=== PATIENT | male | born 1985 | race Two or more races ===

== ENCOUNTER 2019-12-23 20:28 | Inpatient (IN) | payer OTHER ==
[~2019-12-23] VITALS: Ht 177.8 cm; Wt 90.0 kg
[2019-12-23] MEDS ORDERED: ONDANSETRON ODT 4 MG TAB PO ONE (21:00)
[2019-12-23] MEDS ORDERED: ACETAMINOPHEN 325 MG TAB PO ONE (21:00)
[2019-12-23 22:15] LABS: Basophils # (auto) 0 10 ^3/uL (0-0.2); Basophils % (auto) 0.5 % (0.0-2.0); Eosinophils # (auto) 0 10 ^3/uL (0-0.8); Hematocrit 50.1 % (41.0-53.0); Hemoglobin 17.1 g/dL (13.5-17.5); Lymphocytes # (auto) 1.3 10 ^3/uL (0.4-5.4); Lymphocytes % (auto) 13.3 % (10.0-50.0); Mean Corpuscular Hemoglobin 30.1 pg (28.0-32.0); Mean Corpuscular Hgb Conc. 34.1 g/dL (32.0-36.0); Mean Corpuscular Volume 88.4 fL (80.0-100.0); Monocytes # (auto) 1.2 10 ^3/uL (0-1.3); Monocytes % (auto) 12.3 % (0.0-12.0); Neutrophils # (auto) 7.2 10 ^3/uL (1.6-8.6); Neutrophils % (auto) 73.9 % (37.0-80.0); Nucleated Red Blood Cells % 0.4 %; Platelet Count (auto) 280 10^3/uL (140-450); Red Blood Cells 5.67 10^6/uL (4.5-5.90); Red Cell Distribution Width 13.2 % (11.8-14.3); White Blood Cell 9.8 10^3/uL (4.4-10.8)
[2019-12-23 22:33] LABS: Alanine Aminotransferase 47 U/L (16-61); Albumin 3.7 g/dL (3.4-5.0); Anion Gap 9 (5-15); Aspartate Aminotransferase 34 U/L (15-37); BUN/Creatinine Ratio 15.3; Blood Urea Nitrogen 19 mg/dL (7-18); Calcium 8.5 mg/dL (8.5-10.1); Carbon Dioxide 24 mmol/L (21-32); Chloride 102 mmol/L (98-107); GFR African American 85 mL/min; GFR Non-African American 71 mL/min; Glucose 99 mg/dL (74-106); Potassium 4.3 mmol/L (3.5-5.1); Sodium 135 mmol/L (136-145)
[2019-12-23 22:36] LABS: Alkaline Phosphatase 142 U/L (45-117); Bilirubin, Total 1.1 mg/dL (0.2-1.0); Total Protein 8.8 g/dL (6.4-8.2)
[2019-12-24] MEDS: ZINC SULFATE 220mg CAP or TAB PO SCH ×2 (00:07→08:04)
[2019-12-24] MEDS: ENOXAPARIN SOD 40 MG/0.4 ML SYRINGE SC SCH ×2 (00:08→08:04)
[2019-12-24] MEDS: methylPREDNISolone SOD SUCC 125 MG/2 ML VL IV SCH ×3 (00:47→21:47)
[2019-12-24] MEDS: AZITHROMYCIN 250 MG TAB PO SCH ×2 (00:50→08:04)
[2019-12-24 03:40] VITALS: BP 109/69
[2019-12-24] MEDS ORDERED: ALBUTEROL SULF HFA 90MCG INH 200DOSE IN SCH (06:00)
[2019-12-24] MEDS ORDERED: cefTRIAXone 1GM/50ML D5W 50 ML IV ONE ×2 (07:47→08:00)
[2019-12-24] MEDS ORDERED: LISINOPRIL 20 MG TAB PO ONE (09:00)
[2019-12-24 09:26] VITALS: BP 112/77
[2019-12-24] MEDS: ALBUTEROL SULF HFA 90MCG INH 200DOSE IN SCH ×3 (09:30→22:00)
[2019-12-24 12:23] VITALS: BP 108/70
[2019-12-24 17:00] VITALS: BP 115/85
[2019-12-24 22:00] VITALS: BP 89/60
[2019-12-24 23:45] VITALS: BP 100/72
[2019-12-25 05:00] VITALS: BP 100/70
[2019-12-25] MEDS: ALBUTEROL SULF HFA 90MCG INH 200DOSE IN SCH ×3 (06:36→18:55)
[2019-12-25] MEDS: HYDROcodone-ACET 10/325MG TAB PO PRN (07:24)
[2019-12-25 08:00] VITALS: BP 132/76
[2019-12-25] MEDS: AZITHROMYCIN 250 MG TAB PO SCH (10:00)
[2019-12-25] MEDS: ZINC SULFATE 220mg CAP or TAB PO SCH (10:00)
[2019-12-25] MEDS: ENOXAPARIN SOD 40 MG/0.4 ML SYRINGE SC SCH (10:00)
[2019-12-25] MEDS: methylPREDNISolone SOD SUCC 125 MG/2 ML VL IV SCH (10:39)
[2019-12-25 12:00] VITALS: BP 101/69
[2019-12-25 17:00] VITALS: BP 104/73
[2019-12-25] MEDS: ASCORBIC ACID 500 MG TAB PO SCH (21:04)
[2019-12-25 22:00] VITALS: BP 123/74
[2019-12-26 05:00] VITALS: BP 110/69
[2019-12-26] MEDS: ALBUTEROL SULF HFA 90MCG INH 200DOSE IN SCH ×3 (06:44→22:11)
[2019-12-26 07:32] LABS: CRP High Sensitivity 1.16 mg/dL (< 0.3)
[2019-12-26 08:46] VITALS: BP 107/67
[2019-12-26] MEDS: HYDROcodone-ACET 10/325MG TAB PO PRN ×2 (09:27→21:42)
[2019-12-26] MEDS: DexAMETHasone 4 MG TAB PO SCH (09:36)
[2019-12-26] MEDS: THIAMINE HCL 100 MG TAB PO SCH (09:36)
[2019-12-26] MEDS: ZINC SULFATE 220mg CAP or TAB PO SCH (09:36)
[2019-12-26] MEDS: ENOXAPARIN SOD 40 MG/0.4 ML SYRINGE SC SCH (09:37)
[2019-12-26] MEDS: CHOLECALCIFEROL (VITD3) 1,000UNIT=25mCg TAB PO SCH (09:37)
[2019-12-26] MEDS: ASCORBIC ACID 500 MG TAB PO SCH ×2 (09:37→21:42)
[2019-12-26] MEDS: AZITHROMYCIN 250 MG TAB PO SCH (09:37)
[2019-12-26] MEDS: FAMOTIDINE 20 MG TAB PO SCH (09:37)
[2019-12-26 12:58] VITALS: BP 124/76
[2019-12-26 17:00] VITALS: BP 119/75
[2019-12-26 19:55] VITALS: BP 119/75
[2019-12-26] MEDS ORDERED: FUROSEMIDE 40 MG/4 ML VIAL IV ONE (21:00)
[2019-12-26] MEDS: guaiFENesin 200 MG/10 ML UD PO PRN (22:17)
[2019-12-26 23:54] VITALS: BP 117/74
[2019-12-27] MEDS: HYDROcodone-ACET 10/325MG TAB PO PRN ×3 (01:50→21:10)
[2019-12-27 05:23] VITALS: BP 104/68
[2019-12-27 05:25] VITALS: BP 110/75
[2019-12-27] MEDS: guaiFENesin 200 MG/10 ML UD PO PRN ×3 (06:22→16:43)
[2019-12-27 08:00] VITALS: BP 127/79
[2019-12-27] MEDS: THIAMINE HCL 100 MG TAB PO SCH (09:50)
[2019-12-27] MEDS: LACTULOSE 20Gm/30ML SOLN PO SCH ×2 (09:50→21:10)
[2019-12-27] MEDS: DexAMETHasone 4 MG TAB PO SCH (09:50)
[2019-12-27] MEDS: ZINC SULFATE 220mg CAP or TAB PO SCH (09:50)
[2019-12-27] MEDS: FAMOTIDINE 20 MG TAB PO SCH (09:51)
[2019-12-27] MEDS: ASCORBIC ACID 500 MG TAB PO SCH ×2 (09:51→21:10)
[2019-12-27] MEDS: CHOLECALCIFEROL (VITD3) 1,000UNIT=25mCg TAB PO SCH (09:51)
[2019-12-27] MEDS: ENOXAPARIN SOD 40 MG/0.4 ML SYRINGE SC SCH (09:51)
[2019-12-27] MEDS: AZITHROMYCIN 250 MG TAB PO SCH (09:51)
[2019-12-27] MEDS: PANTOPRAZOLE 40 MG TAB PO SCH (09:51)
[2019-12-27] MEDS: ALBUTEROL SULF HFA 90MCG INH 200DOSE IN SCH ×3 (10:13→22:32)
[2019-12-27 12:00] VITALS: BP 116/70
[2019-12-27 16:49] VITALS: BP 111/78
[2019-12-27 22:54] VITALS: BP 105/74
[2019-12-28] MEDS: guaiFENesin 200 MG/10 ML UD PO PRN ×2 (04:25→14:34)
[2019-12-28] MEDS: HYDROcodone-ACET 10/325MG TAB PO PRN ×3 (04:26→21:48)
[2019-12-28 05:29] VITALS: BP 131/81
[2019-12-28 06:38] LABS: Basophils # (auto) 0 10 ^3/uL (0-0.2); Basophils % (auto) 0.1 % (0.0-2.0); Eosinophils # (auto) 0 10 ^3/uL (0-0.8); Hematocrit 45.5 % (41.0-53.0); Lymphocytes # (auto) 1.2 10 ^3/uL (0.4-5.4); Lymphocytes % (auto) 7.6 % (10.0-50.0); Mean Corpuscular Hemoglobin 29.8 pg (28.0-32.0); Mean Corpuscular Volume 90.2 fL (80.0-100.0); Monocytes # (auto) 1.1 10 ^3/uL (0-1.3); Neutrophils # (auto) 13.3 10 ^3/uL (1.6-8.6); Neutrophils % (auto) 85.3 % (37.0-80.0); Platelet Count (auto) 299 10^3/uL (140-450); Red Blood Cells 5.04 10^6/uL (4.5-5.90); Red Cell Distribution Width 12.9 % (11.8-14.3); White Blood Cell 15.6 10^3/uL (4.4-10.8)
[2019-12-28] MEDS: ALBUTEROL SULF HFA 90MCG INH 200DOSE IN SCH ×3 (07:00→22:28)
[2019-12-28 07:02] LABS: Potassium 4.1 mmol/L (3.5-5.1)
[2019-12-28 07:09] LABS: BUN/Creatinine Ratio 24.2; Bilirubin, Total 0.6 mg/dL (0.2-1.0); Total Protein 7.2 g/dL (6.4-8.2)
[2019-12-28 08:00] VITALS: BP 117/69
[2019-12-28] MEDS: LACTULOSE 20Gm/30ML SOLN PO SCH ×2 (08:58→21:50)
[2019-12-28] MEDS: FAMOTIDINE 20 MG TAB PO SCH (08:58)
[2019-12-28] MEDS: CHOLECALCIFEROL (VITD3) 1,000UNIT=25mCg TAB PO SCH (08:59)
[2019-12-28] MEDS: AZITHROMYCIN 250 MG TAB PO SCH (08:59)
[2019-12-28] MEDS: DexAMETHasone 4 MG TAB PO SCH (08:59)
[2019-12-28] MEDS: PANTOPRAZOLE 40 MG TAB PO SCH (08:59)
[2019-12-28] MEDS: ZINC SULFATE 220mg CAP or TAB PO SCH (08:59)
[2019-12-28] MEDS: THIAMINE HCL 100 MG TAB PO SCH (09:00)
[2019-12-28] MEDS: ENOXAPARIN SOD 40 MG/0.4 ML SYRINGE SC SCH (10:00)
[2019-12-28] MEDS: ASCORBIC ACID 500 MG TAB PO SCH ×2 (10:00→21:47)
[2019-12-28 12:00] VITALS: BP 117/71
[2019-12-28 17:00] VITALS: BP 121/77
[2019-12-29 05:00] VITALS: BP 113/85
[2019-12-29] MEDS: ALBUTEROL SULF HFA 90MCG INH 200DOSE IN SCH ×3 (06:38→22:03)
[2019-12-29 09:00] VITALS: BP 109/79
[2019-12-29] MEDS: CHOLECALCIFEROL (VITD3) 1,000UNIT=25mCg TAB PO SCH (10:00)
[2019-12-29] MEDS: HYDROcodone-ACET 10/325MG TAB PO PRN ×2 (10:20→21:31)
[2019-12-29] MEDS: LACTULOSE 20Gm/30ML SOLN PO SCH ×2 (10:20→21:30)
[2019-12-29] MEDS: ZINC SULFATE 220mg CAP or TAB PO SCH (10:20)
[2019-12-29] MEDS: PANTOPRAZOLE 40 MG TAB PO SCH (10:21)
[2019-12-29] MEDS: AZITHROMYCIN 250 MG TAB PO SCH (10:21)
[2019-12-29] MEDS: ENOXAPARIN SOD 40 MG/0.4 ML SYRINGE SC SCH (10:21)
[2019-12-29] MEDS: ASCORBIC ACID 500 MG TAB PO SCH ×2 (10:21→21:31)
[2019-12-29] MEDS: FAMOTIDINE 20 MG TAB PO SCH (10:21)
[2019-12-29] MEDS: DexAMETHasone 4 MG TAB PO SCH (10:21)
[2019-12-29] MEDS: THIAMINE HCL 100 MG TAB PO SCH (10:22)
[2019-12-29 13:00] VITALS: BP 119/75
[2019-12-29 17:00] VITALS: BP 117/75
[2019-12-29 19:35] VITALS: BP 117/75
[2019-12-29] MEDS: guaiFENesin 200 MG/10 ML UD PO PRN (21:31)
[2019-12-29 22:00] VITALS: BP 105/70
[2019-12-30 05:00] VITALS: BP 108/79
[2019-12-30] MEDS: ALBUTEROL SULF HFA 90MCG INH 200DOSE IN SCH ×3 (07:13→21:53)
[2019-12-30 09:00] VITALS: BP 122/83
[2019-12-30] MEDS: CHOLECALCIFEROL (VITD3) 1,000UNIT=25mCg TAB PO SCH (10:00)
[2019-12-30] MEDS: ZINC SULFATE 220mg CAP or TAB PO SCH (10:18)
[2019-12-30] MEDS: DexAMETHasone 4 MG TAB PO SCH (10:18)
[2019-12-30] MEDS: AZITHROMYCIN 250 MG TAB PO SCH (10:18)
[2019-12-30] MEDS: LACTULOSE 20Gm/30ML SOLN PO SCH ×2 (10:18→21:37)
[2019-12-30] MEDS: FAMOTIDINE 20 MG TAB PO SCH (10:18)
[2019-12-30] MEDS: guaiFENesin 200 MG/10 ML UD PO PRN (10:18)
[2019-12-30] MEDS: PANTOPRAZOLE 40 MG TAB PO SCH (10:18)
[2019-12-30] MEDS: HYDROcodone-ACET 10/325MG TAB PO PRN ×2 (10:19→21:37)
[2019-12-30] MEDS: THIAMINE HCL 100 MG TAB PO SCH (10:19)
[2019-12-30] MEDS: ASCORBIC ACID 500 MG TAB PO SCH ×2 (10:19→21:37)
[2019-12-30] MEDS: ENOXAPARIN SOD 40 MG/0.4 ML SYRINGE SC SCH (10:19)
[2019-12-30 13:00] VITALS: BP 114/77
[2019-12-30 17:00] VITALS: BP 111/73
[2019-12-30 22:00] VITALS: BP 111/71
[2019-12-31] MEDS: guaiFENesin 200 MG/10 ML UD PO PRN (01:11)
[2019-12-31 05:00] VITALS: BP 115/68
[2019-12-31] MEDS: ALBUTEROL SULF HFA 90MCG INH 200DOSE IN SCH ×3 (06:59→22:45)
[2019-12-31 08:00] VITALS: BP 117/70
[2019-12-31 09:08] VITALS: BP 117/70
[2019-12-31] MEDS: ZINC SULFATE 220mg CAP or TAB PO SCH (09:09)
[2019-12-31] MEDS: THIAMINE HCL 100 MG TAB PO SCH (09:09)
[2019-12-31] MEDS: LACTULOSE 20Gm/30ML SOLN PO SCH ×2 (09:09→22:00)
[2019-12-31] MEDS: DexAMETHasone 4 MG TAB PO SCH (09:09)
[2019-12-31] MEDS: FAMOTIDINE 20 MG TAB PO SCH (09:09)
[2019-12-31] MEDS: PANTOPRAZOLE 40 MG TAB PO SCH (09:09)
[2019-12-31] MEDS: ENOXAPARIN SOD 40 MG/0.4 ML SYRINGE SC SCH (09:10)
[2019-12-31] MEDS: AZITHROMYCIN 250 MG TAB PO SCH (09:10)
[2019-12-31] MEDS: CHOLECALCIFEROL (VITD3) 1,000UNIT=25mCg TAB PO SCH (09:10)
[2019-12-31] MEDS: ASCORBIC ACID 500 MG TAB PO SCH ×2 (09:13→22:00)
[2019-12-31] MEDS: HYDROcodone-ACET 10/325MG TAB PO PRN ×2 (09:14→22:32)
[2019-12-31 12:21] LABS: Hepatitis A Ab IgM Negative; Hepatitis B Core IgM Negative; Hepatitis B Surface Antigen Negative (Negative); Hepatitis C Antibody Negative (Negative)
[2019-12-31 13:00] VITALS: BP 117/82
[2019-12-31 16:24] VITALS: BP 125/78
[2019-12-31 22:00] VITALS: BP 105/70
[2020-01-01] VITALS (7 sets, daily range): BP systolic 105–114; BP diastolic 69–79
[2020-01-01] MEDS: ALBUTEROL SULF HFA 90MCG INH 200DOSE IN SCH ×3 (07:04→22:54)
[2020-01-01] MEDS: LACTULOSE 20Gm/30ML SOLN PO SCH ×2 (09:23→21:47)
[2020-01-01] MEDS: DexAMETHasone 4 MG TAB PO SCH (09:23)
[2020-01-01] MEDS: PANTOPRAZOLE 40 MG TAB PO SCH (09:23)
[2020-01-01] MEDS: ZINC SULFATE 220mg CAP or TAB PO SCH (09:23)
[2020-01-01] MEDS: THIAMINE HCL 100 MG TAB PO SCH (09:23)
[2020-01-01] MEDS: FAMOTIDINE 20 MG TAB PO SCH (09:23)
[2020-01-01] MEDS: ASCORBIC ACID 500 MG TAB PO SCH ×2 (09:23→21:47)
[2020-01-01] MEDS: CHOLECALCIFEROL (VITD3) 1,000UNIT=25mCg TAB PO SCH (09:23)
[2020-01-01] MEDS: AZITHROMYCIN 250 MG TAB PO SCH (09:24)
[2020-01-01] MEDS: ENOXAPARIN SOD 40 MG/0.4 ML SYRINGE SC SCH (09:24)
[2020-01-01] MEDS: HYDROcodone-ACET 10/325MG TAB PO PRN ×2 (17:22→21:51)
[2020-01-02] MEDS: HYDROcodone-ACET 10/325MG TAB PO PRN ×2 (05:07→21:09)
[2020-01-02 06:00] VITALS: BP 105/71
[2020-01-02] MEDS: ALBUTEROL SULF HFA 90MCG INH 200DOSE IN SCH ×3 (06:35→22:00)
[2020-01-02 09:00] VITALS: BP 105/70
[2020-01-02 09:02] LABS: Potassium 4.4 mmol/L (3.5-5.1)
[2020-01-02 09:09] LABS: BUN/Creatinine Ratio 22.9; Bilirubin, Total 0.3 mg/dL (0.2-1.0); Calcium 8.4 mg/dL (8.5-10.1); Total Protein 6.7 g/dL (6.4-8.2)
[2020-01-02] MEDS: LACTULOSE 20Gm/30ML SOLN PO SCH ×2 (10:19→22:21)
[2020-01-02] MEDS: THIAMINE HCL 100 MG TAB PO SCH (10:19)
[2020-01-02] MEDS: ZINC SULFATE 220mg CAP or TAB PO SCH (10:20)
[2020-01-02] MEDS: DexAMETHasone 4 MG TAB PO SCH (10:20)
[2020-01-02] MEDS: FAMOTIDINE 20 MG TAB PO SCH (10:20)
[2020-01-02] MEDS: ENOXAPARIN SOD 40 MG/0.4 ML SYRINGE SC SCH (10:21)
[2020-01-02] MEDS: PANTOPRAZOLE 40 MG TAB PO SCH (10:21)
[2020-01-02] MEDS: CHOLECALCIFEROL (VITD3) 1,000UNIT=25mCg TAB PO SCH (10:21)
[2020-01-02] MEDS: AZITHROMYCIN 250 MG TAB PO SCH (10:21)
[2020-01-02] MEDS: ASCORBIC ACID 500 MG TAB PO SCH ×2 (10:21→22:21)
[2020-01-02 13:00] VITALS: BP 111/73
[2020-01-02 16:27] VITALS: BP 113/80
[2020-01-02 22:00] VITALS: BP 110/69
[2020-01-03 05:00] VITALS: BP 111/76
[2020-01-03] MEDS: HYDROcodone-ACET 10/325MG TAB PO PRN ×3 (05:45→20:39)
[2020-01-03] MEDS: ALBUTEROL SULF HFA 90MCG INH 200DOSE IN SCH ×3 (06:38→21:36)
[2020-01-03 09:00] VITALS: BP 115/81
[2020-01-03] MEDS: LACTULOSE 20Gm/30ML SOLN PO SCH ×2 (10:01→22:01)
[2020-01-03] MEDS: ENOXAPARIN SOD 40 MG/0.4 ML SYRINGE SC SCH (10:01)
[2020-01-03] MEDS: DexAMETHasone 4 MG TAB PO SCH (10:02)
[2020-01-03] MEDS: FAMOTIDINE 20 MG TAB PO SCH (10:03)
[2020-01-03] MEDS: ASCORBIC ACID 500 MG TAB PO SCH ×2 (10:03→22:02)
[2020-01-03] MEDS: AZITHROMYCIN 250 MG TAB PO SCH (10:03)
[2020-01-03] MEDS: CHOLECALCIFEROL (VITD3) 1,000UNIT=25mCg TAB PO SCH (10:03)
[2020-01-03] MEDS: ZINC SULFATE 220mg CAP or TAB PO SCH (10:03)
[2020-01-03] MEDS: PANTOPRAZOLE 40 MG TAB PO SCH (10:03)
[2020-01-03] MEDS: THIAMINE HCL 100 MG TAB PO SCH (10:04)
[2020-01-03 13:00] VITALS: BP 110/71
[2020-01-03 17:00] VITALS: BP 118/75
[2020-01-03 19:09] VITALS: BP 118/75
[2020-01-03 22:00] VITALS: BP 121/81
[2020-01-04 05:00] VITALS: BP 121/80
[2020-01-04] MEDS: HYDROcodone-ACET 10/325MG TAB PO PRN ×4 (05:17→19:59)
[2020-01-04] MEDS: ALBUTEROL SULF HFA 90MCG INH 200DOSE IN SCH ×3 (07:10→22:37)
[2020-01-04 09:00] VITALS: BP 128/85
[2020-01-04] MEDS: CHOLECALCIFEROL (VITD3) 1,000UNIT=25mCg TAB PO SCH (09:55)
[2020-01-04] MEDS: DexAMETHasone 4 MG TAB PO SCH (09:55)
[2020-01-04] MEDS: THIAMINE HCL 100 MG TAB PO SCH (09:55)
[2020-01-04] MEDS: ZINC SULFATE 220mg CAP or TAB PO SCH (09:55)
[2020-01-04] MEDS: PANTOPRAZOLE 40 MG TAB PO SCH (09:55)
[2020-01-04] MEDS: ASCORBIC ACID 500 MG TAB PO SCH ×2 (09:55→21:25)
[2020-01-04] MEDS: FAMOTIDINE 20 MG TAB PO SCH (09:55)
[2020-01-04] MEDS: AZITHROMYCIN 250 MG TAB PO SCH (09:56)
[2020-01-04] MEDS: LACTULOSE 20Gm/30ML SOLN PO SCH ×2 (09:56→21:25)
[2020-01-04 13:00] VITALS: BP 124/79
[2020-01-04 17:00] VITALS: BP 113/82
[2020-01-04 20:00] VITALS: BP 106/63
[2020-01-04] MEDS ORDERED: ZOLPIDEM TARTRATE 5 MG TAB PO PRN (20:45)
[2020-01-04 22:00] VITALS: BP 106/63
[2020-01-05] MEDS: HYDROcodone-ACET 10/325MG TAB PO PRN (03:32)
[2020-01-05 05:01] VITALS: BP 135/80
[2020-01-05] MEDS: ALBUTEROL SULF HFA 90MCG INH 200DOSE IN SCH ×2 (06:47→14:39)
[2020-01-05 09:25] VITALS: BP 113/71
[2020-01-05] MEDS: LACTULOSE 20Gm/30ML SOLN PO SCH (09:59)
[2020-01-05] MEDS: FAMOTIDINE 20 MG TAB PO SCH (09:59)
[2020-01-05] MEDS: CHOLECALCIFEROL (VITD3) 1,000UNIT=25mCg TAB PO SCH (09:59)
[2020-01-05] MEDS: THIAMINE HCL 100 MG TAB PO SCH (09:59)
[2020-01-05] MEDS: PANTOPRAZOLE 40 MG TAB PO SCH (09:59)
[2020-01-05] MEDS: ASCORBIC ACID 500 MG TAB PO SCH (10:00)
[2020-01-05] MEDS: AZITHROMYCIN 250 MG TAB PO SCH (10:00)
[2020-01-05] MEDS: ZINC SULFATE 220mg CAP or TAB PO SCH (10:00)
[2020-01-05 13:03] VITALS: BP 109/75
[2020-01-05] MEDS ORDERED: ONDANSETRON HCL 4 MG/2 ML VIAL IV PRN (14:00)
[2020-01-05] MEDS ORDERED: HYDROcodone-ACET 10/325MG TAB PO PRN (14:00)
[2020-01-05] MEDS ORDERED: PANT40T PO (16:54)
[2020-01-05] MEDS ORDERED: LACT10SO3 PO (16:54)
[2020-01-05] MEDS ORDERED: ALBUAER3 IN (16:54)
[2020-01-05 17:30] VITALS: BP 129/89
[2020-01-05 17:43] VITALS: BP 117/74
== END 2020-01-05 18:44 | DRG 177 ==
LOC: EDBD 20:28 → ER 20:32 → EEVIPCON 20:32 → OVERFLOW 20:33 → EAST 12-24 09:05
PROVIDERS: ADMIT Internal Medicine; ATTEND Internal Medicine
DX: U07.1 COVID-19 (principal); J12.89 Other viral pneumonia; J96.01 Acute respiratory failure with hypoxia; J98.11 Atelectasis; R50.9 Fever, unspecified; I10 Essential (primary) hypertension; K59.00 Constipation, unspecified; Z82.3 Family history of stroke; Z82.49 Family history of ischemic heart disease and other diseases of the circulatory system; Z83.3 Family history of diabetes mellitus; Z86.19 Personal history of other infectious and parasitic diseases; Z79.899 Other long term (current) drug therapy
CPT/HCPCS: 36415; 36600; 71045; 74022; 80053; 80074; 82150; 82728; 82805; 83615; 83690; 83880; 85025; 85379; 86141; 87081; 94640; 96365; 96372; G0378; J0696; J2405; Q0162

== ENCOUNTER 2021-10-04 12:19 | Emergency (ER) | payer OTHER ==
[~2021-10-04] VITALS: Ht 177.8 cm; Wt 89.8 kg
[~2021-10-04 12:19] MED LIST: ALBUAER3 IN; LACT10SO3 PO; PANT40T PO
[2021-10-04 17:30] VITALS: BP 129/91
== END 2021-10-04 17:47 | disposition home or self-care (01) ==
LOC: ER 12:19 → EDBD 12:19 → EEVIPCON 12:19 → ER 17:47
DX: G44.309 Post-traumatic headache, unspecified, not intractable (principal)
CPT/HCPCS: 70450